=== PATIENT | female | born 1940 | race Caucasian/White ===

== ENCOUNTER 2022-03-01 09:28 | Day surgery (SDC) | payer MEDICARE, SELFPAY ==
--- NOTE | 2022-03-01 10:18 | W.ANESPRE ---
General Info Date of Service Date Performed: 03/01/22 Height: 5 ft 3 in Weight: 61 kg Body Mass Index (BMI): 23.8 Surgical Procedure: Operation Date: 03/01/22 12:40 Proposed Procedure Side Surgeon p Cataract Extraction with IOL Implant Right Wilton Mendez MD Meds Allergies and Home Medications Allergies Allergy/AdvReac Type Severity Reaction Status Date / Time azithromycin Allergy Intermediate Hives Unverified 03/01/22 10:20 codeine Allergy Intermediate Hives Unverified 03/01/22 10:20 amoxicillin Allergy Unverified 03/01/22 10:20 Home Medication Medication Instructions Recorded acetaminophen 325 mg tablet 325 mg PO DIRECTED 02/23/22 carbidopa 25 mg-levodopa 100 mg 1 tab PO QID 02/23/22 tablet cholecalciferol (vitamin D3) 10 400 unit PO DAILY 02/23/22 mcg (400 unit) capsule (Vitamin D3) donepezil 5 mg tablet 5 mg PO HS 02/23/22 glucosamine sulfate 500 mg tablet 1,000 mg PO DAILY 02/23/22 (Glucosamine) hydrochlorothiazide 12.5 mg tablet 12.5 mg PO DAILY 02/23/22 hydrocortisone 2.5 % topical cream 1 applic topical DIRECTED 02/23/22 multivitamin 1 tab PO DAILY 02/23/22 simvastatin 20 mg tablet 20 mg PO HS 02/23/22 zinc oxide 1 applic topical DIRECTED 02/23/22 Current Visit Medications: Current Medications Generic Name Dose Route Start Last Admin Trade Name Freq PRN Reason Stop Dose Admin Acetaminophen 1,000 mg 03/01/22 06:00 Acetaminophen 500 Mg Tab PO Q4H PRN PRN Miscellaneous Medication 0 ml 03/01/22 06:00 Prednisolone 1%, Moxifloxacin 0.5%, Nepafenac 0.1% 5ml Btl OD DIRECTED [place] Miscellaneous Medication 0 ml 03/01/22 06:00 Tropicam./Phenyleph. (1/2.5%) 5 Ml Btl OD DIRECTED [place] Tetracaine HCl 0 ml 03/01/22 06:00 Tetracaine 0.5% 4 Ml Btl OD DIRECTED [place] PFSH Active Problems Active Problems: Problem Status Onset Code Nuclear sclerotic cataract of right eye H25.11 Cortical cataract of right eye H26.9 Medical History Medical History Dementia due to Parkinson's disease, without behavioral disturbance, psychotic disturbance, mood disturbance, or anxiety Essential hypertension Falls frequently Gait abnormality GERD with esophagitis History of hoarseness History of melanoma Hx of breast cancer Lichen sclerosus Memory loss Mixed hyperlipidemia Paresthesia Parkinson's disease with neurogenic orthostatic hypotension Polyarthralgia Pseudobulbar affect Psoriasis Right hip pain Seasonal allergic rhinitis 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 Urinary incontinence Visual hallucination Vitamin D deficiency Surgical History Surgical History H/O basal cell carcinoma excision History of right hip replacement History of total abdominal hysterectomy Hx of appendectomy Hx of breast biopsy Hx of colonoscopy Hx of lumpectomy Hx of melanoma excision Tobacco Smoking/Tobacco Use Status: Never Alcohol Alcohol Intake: never Substance Use Substance use: Never Substance use type: does not use Vital Signs and Lab Results Lab Results Blood Type / Crossmatch: No Data to Display Complete Blood Count: No Data to Display Complete Metabolic Panel: No Data to Display Liver Function Panel: No Data to Display Coagulation Panel: No Data to Display Cardiac Panel: No Data to Display Arterial Blood Gas: No Data to Display Venous Blood Gas: No Data to Display Pancreas Panel: No Data to Display Thyroid Panel: No Data to Display Infectious Disease: No Data to Display Blood Cultures: No Data to Display Toxicology Panel: No Data to Display Anesthesia Assessment and Plan Anesthesia History Personal History: No History of Anesthesia Complications Family History: No Family History of Anesthesia Complications Exercise Tolerance Exercise Tolerance: Metabolic Equivalents<4 Pertinent Negatives Pertinent Negatives: No Major Cardiovascular Symptoms or Complaints, No Major Pulmonary Symptoms or Complaints and No History of CVA/TIA Cardiac & Pulmonary Exam Cardiac Exam: Normal S1/S2 Heart Sounds Pulmonary Exam: Clear Bilateral Breath Sounds Implantable Cardiac Device Does patient have a Pacemaker or an ICD?: No Airway Exam Known Difficult Airway: No Mallampati Class: 3 Mouth Opening: Normal (> 3cm) Thyromental Distance: Greater than 3 cm Neck Range of Motion: Limited ROM Neck Circumference: Normal Teeth Condition: Normal Dentition ASA Classification ASA Score: ASA 3 Emergency Case?: No NPO Status NPO Status: NPO Clears >2 hours, Solids >8 hours Anesthesia Plan Resuscitation Status: Full Code Anesthesia Technique: MAC Anesthesia Airway Planned: Natural Airway Monitors Used: Standard Monitors Preoperative Comments:: 81 yo female for cataract removal. Sig PMHx: parkinsons (orthostatic hypotension, dementia), GERD, HTN, never smoker. Significant limitations due to her parkinsons. Discussed plan with her, she feels that she will be ok with no MKO mac, but we discussed that an IV can be placed intraoperatively and a small amount of medication given if she feels that it is needed. She and her spouse are in agrement.
[2022-03-01] MEDS: Tropicam./Phenyleph. (1/2.5%) 5 ML BTL OD ×3 (10:24→10:41)
[2022-03-01 10:25] VITALS: BP 143/82; PULSE 63; RESP 16; TEMP 36.1; O2SAT 99
[2022-03-01 10:39] VITALS: BMI 23.8
[2022-03-01] MEDS: Povidone-Iodine Ophth 30 ML BTL (11:16)
[2022-03-01] MEDS: Tetracaine 0.5% 4 ML BTL OD (11:18)
[2022-03-01] MEDS: Balanced Salt Soln.-PLUS 500 ML BAG (11:18)
[2022-03-01] MEDS: Duovisc Viscoelastic System EACH 1 EACH (11:19)
[2022-03-01] MEDS: Lidocaine 2% Jelly 6 ML SYR (11:19)
[2022-03-01 11:39] VITALS: BP 177/85; PULSE 61; RESP 16; TEMP 35.9; O2SAT 100
--- NOTE | 2022-03-01 11:51 | W.PM.DSUDISC ---
Date of service: 03/01/22 Time of Service: 11:51 Discharge Plan Disposition Patient Disposition: HOME Condition: Good Discharge Details Attending Provider: Wilton Mendez Primary Care Provider: Catrachito Sparrow Home Meds and New Rx's Prescriptions: No Action multivitamin Tablet 1 tab PO DAILY acetaminophen 325 mg Tablet 325 mg PO DIRECTED donepezil 5 mg Tablet 5 mg PO HS glucosamine sulfate [Glucosamine] 500 mg Tablet 1,000 mg PO DAILY simvastatin 20 mg Tablet 20 mg PO HS hydrocortisone 2.5 % Cream 1 applic TOPICAL DIRECTED carbidopa-levodopa 25-100 mg Tablet 1 tab PO QID zinc oxide Cream 1 applic TOPICAL DIRECTED cholecalciferol (vitamin D3) [Vitamin D3] 10 mcg (400 unit) Capsule 400 unit PO DAILY hydrochlorothiazide 12.5 mg Tablet 12.5 mg PO DAILY Discharge Instructions Stand Alone Forms: Post-op Topical Cataract, Yovani Ann (DSU) Discharge Orders Discharge Orders: Discharge Order (Routine); Ordered 03/01/22 Ordered By: Wilton Mendez DS: Diagnosis Discharge Diagnosis (1) Nuclear sclerotic cataract of right eye: Status: Resolved (2) Cortical cataract of right eye: Status: Resolved
--- NOTE | 2022-03-01 11:52 | ROE_ITS ---
Date of service: 03/01/22 Time of Service: 11:52 Operative Note Operative Note DATE OF PROCEDURE: 03/01/22 PRE-OP DIAGNOSIS: Nuclear/cortical cataract, right eye POST-OP DIAGNOSIS: same PROCEDURE: Cataract extraction using phacoemulsification with intraocular lens implant, right eye SURGEON: Wilton Mendez ANESTHESIA TYPE: Local By Surgeon and MAC Refer to Anesthesia Record ESTIMATED BLOOD LOSS: 0 PATHOLOGY: none sent COMPLICATIONS: None Patient was transported to: same day Patient's condition: stable Implants: Chase & Chase/SIMON Tecnis [id number] Indications: Progressive visual loss due to cataract, right eye Procedure Description: CATARACT SURGERY OPERATIVE REPORT PREOPERATIVE DIAGNOSIS: 1. Nuclear/cortical cataract, right eye POSTOPERATIVE DIAGNOSIS: Same OPERATION: 1. Cataract extraction using phacoemulsification with posterior chamber intraocular lens implant, right eye. IOL: IOL Qm Consultant/Model: Chase & Chase / SIMON Tecnis [id number] IOL Power: + 22.5 diopters IOL Serial Number: [id number] Optic Diameter: 6.0mm Haptic/Overall Diameter: 13.0mm PHACO INFO: Constantine eTippingurion Vision System with OZil and Active Fluidics Cumulative Dispersed Energy (CDE): 5.65 seconds SURGEON: Wilton Mendez MD, ATILIO ANESTHESIA: Monitored Anesthesia Care (MAC), with local sub-tenon's anesthetic infiltration COMPLICATIONS: None SPECIMENS: None INDICATIONS FOR PROCEDURE: The patient is an 81-year-old lady with history of diminished visual acuity in both eyes secondary to the development of bilateral nuclear/cortical cataract. She is significantly symptomatic that she desires cataract surgery and attempt to improve and maximize her vision. The option of cataract surgery was offered to the patient and she wished to proceed. PROCEDURE: The correct surgical eye was identified and marked as the right eye and the pupil was dilated in the preoperative area using mydriatics and cycloplegics. The dilated pupil size was 8.0 mm. The patient elected to proceed without oral sedation. The patient was brought to the operating room where cardiopulmonary monitoring was instituted and surgical time-out was performed, confirming the correct operative eye and IOL power. Positioning was challenging due to patient's history of back issues. Topical anesthesia was administered and ophthalmic povidone-iodine 5% was instilled into the conjunctival fornices. Lidocaine gel was applied to the cornea and the hermes-ocular area was prepped with Betadine 10% solution and draped in the usual sterile fashion for intraocular surgery, including an aperture drape. A Tegaderm transparent film dressing was cut in half and used to cover the lashes and lid margins. Care was taken to sequester the lashes and lid margins under the Tegaderm dressing. A lid speculum was placed between the lids of the operative eye and the Constantine LuxOR Revalia operating microscope was maneuvered into position. Katie scissors were then used to make a conjunctival buttonhole approximately 6mm posterior to the limbus in the inferonasal quadrant. Blunt dissection was carried out to expose bare sclera, and a blunt-tipped sub-tenon?s anesthesia cannula was introduced and passed posteriorly along the globe where non- preserved plain lidocaine was injected into posterior sub-Tenon?s space. A sideport knife was used to make a paracentesis port inferotemporally. Intraocular phenylephrine/lidocaine was injected into the anterior chamber. The anterior chamber was filled with viscoelastic. A keratome knife was used to construct a 2-plane near-clear corneal tunnel extending 2.0mm into clear cornea superiortemporally. A flap was raised on the anterior capsule and capsulorhexis forceps were used to complete a continuous curvilinear capsulorhexis of 5.0 mm. The capsule is noted to be quite thin with some zonular laxity. Balanced salt solution was then used to perform cortical cleaving hydrodissection and nuclear hydrodelineation until the lens could be freely rotated within the capsular bag. The lens nucleus was then disassembled and removed within the capsular bag and iris plane using phacoemulsification. Residual cortical material was removed using the I/A handpiece. The posterior capsule was carefully polished to remove as much residual lens epithelial cells as safely possible. The capsular bag was then inflated and the anterior chamber deepened with viscoelastic. The lens implant described above was inserted into the capsular bag using the SIMON [place] Injector. A Kuglen hook was used to dial the IOL into position. Residual viscoelastic was then removed first from posterior to the IOL, then from the anterior chamber using the I/A handpiece. The lens implant was noted to center nicely within the capsular bag. The incisions were stromally hydrated, and the anterior chamber was reformed using BSS. Then 0.5cc of moxifloxacin 1.0mg/ml were injected into the capsular bag and anterior chamber. The incisions were checked with a Weck spear and found to be secure. Several drops of ophthalmic povidone-iodine 5% were then applied to the eye followed by two drops of Imprimis combination prednisolone/moxifloxacin/nepafenac solution. The drapes were removed and a clear plastic protective eye shield was placed over the eye. The patient was then returned to Same Day Surgery in stable condition.
[2022-03-01] MEDS: Acetaminophen 500 MG TAB 1000 MG PO (11:55)
--- NOTE | 2022-03-01 12:03 | W.ANESPOSTOP ---
Postoperative Evaluation Date, Time and Location Date Performed: 03/01/22 Time Performed: 12:03 Patient Location: Day Surgery Unit Vital Signs Most Recent Imported Vital Signs: Most Recent Vital Signs Temp Pulse Resp BP Pulse Ox 35.9 C L 61 16 177/85 H 100 03/01/22 11:39 03/01/22 11:39 03/01/22 11:39 03/01/22 11:39 03/01/22 11:39 Pain Score Most Recent Pain Score: Most Recent Pain Score Pain Level 0 03/01/22 11:39 Assessment Mental Status: Awake (Alert & Oriented to Patient Baseline) Airway and Respiratory Function: Patent airway with normal (patient baseline) respiratory exam Cardiovascular Function: Hemodynamically Stable Hydration Status: Adequately Hydrated Nausea & Vomiting: No Nausea or Vomiting Pain: Pt. Denies Any Pain Peripheral Nerve Block: Other (Local by Dr. Mendez) Postoperative Comments:: Patient seen earlier and doing well. Cleared for discharge
[2022-03-01 12:07] VITALS: BP 128/76; PULSE 68; RESP 16; TEMP 36.6; O2SAT 97
== END 2022-03-01 12:23 | disposition home or self-care (01) ==
LOC: SUR 09:30
PROVIDERS: PCP Family Medicine; Visit Provider Ophthalmology
PROC: (CPT 66984; principal; 2022-03-01 12:30)
DX: H25.11 Age-related nuclear cataract, right eye (principal); G20 Parkinson's disease; I10 Essential (primary) hypertension
CPT/HCPCS: 66984; V2632

== ENCOUNTER 2022-03-15 07:03 | Day surgery (SDC) | payer MEDICARE, SELFPAY ==
[2022-03-15 07:30] VITALS: BP 99/58; PULSE 75; RESP 16; TEMP 36; O2SAT 98
[2022-03-15 07:48] VITALS: BP 99/58; PULSE 75; RESP 16; TEMP 36; O2SAT 98
[2022-03-15] MEDS: Tropicam./Phenyleph. (1/2.5%) 5 ML BTL OS ×3 (07:51→07:58)
--- NOTE | 2022-03-15 07:58 | W.ANESPRE ---
General Info Date of Service Date Performed: 03/15/22 Height: 5 ft 4 in Weight: 56.245 kg Body Mass Index (BMI): 21.2 Surgical Procedure: Operation Date: 03/15/22 09:40 Proposed Procedure Side Surgeon p Cataract Extraction with IOL Implant Left Wilton Mendez MD Meds Allergies and Home Medications Allergies Allergy/AdvReac Type Severity Reaction Status Date / Time azithromycin Allergy Intermediate Hives Unverified 03/15/22 07:38 codeine Allergy Intermediate Hives Unverified 03/15/22 07:38 amoxicillin Allergy Unverified 03/15/22 07:38 Home Medication Medication Instructions Recorded acetaminophen 325 mg tablet 325 mg PO DIRECTED 02/23/22 carbidopa 25 mg-levodopa 100 mg 1 tab PO QID 02/23/22 tablet cholecalciferol (vitamin D3) 10 400 unit PO DAILY 02/23/22 mcg (400 unit) capsule (Vitamin D3) donepezil 5 mg tablet 5 mg PO HS 02/23/22 glucosamine sulfate 500 mg tablet 1,000 mg PO DAILY 02/23/22 (Glucosamine) hydrochlorothiazide 12.5 mg tablet 12.5 mg PO DAILY 02/23/22 hydrocortisone 2.5 % topical cream 1 applic topical DIRECTED 02/23/22 multivitamin 1 tab PO DAILY 02/23/22 simvastatin 20 mg tablet 20 mg PO HS 02/23/22 zinc oxide 1 applic topical DIRECTED 02/23/22 Current Visit Medications: Current Medications Generic Name Dose Route Start Last Admin Trade Name Freq PRN Reason Stop Dose Admin Acetaminophen 1,000 mg 03/15/22 06:00 Acetaminophen 500 Mg Tab PO Q4H PRN PRN Miscellaneous Medication 0 ml 03/15/22 06:00 Prednisolone 1%, Moxifloxacin 0.5%, Nepafenac 0.1% 5ml Btl OS DIRECTED [place] Miscellaneous Medication 0 ml 03/15/22 06:00 03/15/22 07:54 Tropicam./Phenyleph. (1/2.5%) 5 Ml Btl OS 1 drp DIRECTED [place] Administration Tetracaine HCl 0 ml 03/15/22 06:00 Tetracaine 0.5% 4 Ml Btl OS DIRECTED [place] PFSH Active Problems Active Problems: Problem Status Onset Code Cortical cataract of right eye H26.9 Nuclear sclerotic cataract of right eye H25.11 Nuclear sclerotic cataract of left eye H25.12 Cortical cataract of left eye H26.9 Medical History Medical History Dementia due to Parkinson's disease, without behavioral disturbance, psychotic disturbance, mood disturbance, or anxiety Essential hypertension Falls frequently Gait abnormality GERD with esophagitis History of hoarseness History of melanoma Hx of breast cancer Lichen sclerosus Memory loss Mixed hyperlipidemia Paresthesia Parkinson's disease with neurogenic orthostatic hypotension Polyarthralgia Pseudobulbar affect Psoriasis Right hip pain Seasonal allergic rhinitis 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 Urinary incontinence Visual hallucination Vitamin D deficiency Medical History Comments:: Frequent falls; neck/back issues Surgical History Surgical History H/O basal cell carcinoma excision History of cataract surgery History of right hip replacement History of total abdominal hysterectomy Hx of appendectomy Hx of breast biopsy Hx of colonoscopy Hx of lumpectomy Hx of melanoma excision Tobacco Smoking/Tobacco Use Status: Never Alcohol Alcohol Intake: never Substance Use Substance use: Never Substance use type: does not use Vital Signs and Lab Results Vital Signs Most Recent Vital Signs in EMR: Most Recent Vital Signs Temp Pulse Resp BP Pulse Ox 36 C L 75 16 99/58 L 98 03/15/22 07:48 03/15/22 07:48 03/15/22 07:48 03/15/22 07:48 03/15/22 07:48 Lab Results Blood Type / Crossmatch: No Data to Display Complete Blood Count: No Data to Display Complete Metabolic Panel: No Data to Display Liver Function Panel: No Data to Display Coagulation Panel: No Data to Display Cardiac Panel: No Data to Display Arterial Blood Gas: No Data to Display Venous Blood Gas: No Data to Display Pancreas Panel: No Data to Display Thyroid Panel: No Data to Display Infectious Disease: No Data to Display Blood Cultures: No Data to Display Toxicology Panel: No Data to Display Anesthesia Assessment and Plan Anesthesia History Personal History: No History of Anesthesia Complications Family History: No Family History of Anesthesia Complications Exercise Tolerance Exercise Tolerance: Metabolic Equivalents<4 Pertinent Negatives Pertinent Negatives: No Symptoms of GERD Cardiac & Pulmonary Exam Cardiac Exam: Normal S1/S2 Heart Sounds Pulmonary Exam: Clear Bilateral Breath Sounds Implantable Cardiac Device Does patient have a Pacemaker or an ICD?: No Airway Exam Known Difficult Airway: No Mallampati Class: 3 Mouth Opening: Normal (> 3cm) Thyromental Distance: Greater than 3 cm Neck Range of Motion: Limited ROM Neck Circumference: Normal Teeth Condition: Normal Dentition ASA Classification ASA Score: ASA 3 Emergency Case?: No NPO Status NPO Status: NPO Clears >2 hours, Solids >8 hours Anesthesia Plan Resuscitation Status: Full Code Anesthesia Technique: MAC Anesthesia Airway Planned: Natural Airway Monitors Used: Standard Monitors Preoperative Comments:: No sedation as before. Did well
[2022-03-15 08:00] VITALS: BMI 21.2
[2022-03-15] MEDS: Tetracaine 0.5% 4 ML BTL OS (08:50)
[2022-03-15] MEDS: Povidone-Iodine Ophth 30 ML BTL (08:54)
[2022-03-15] MEDS: Lidocaine 2% Jelly 6 ML SYR (08:55)
[2022-03-15] MEDS: Lidocaine 1% Pres-Free 5 ML VIAL (09:01)
[2022-03-15] MEDS: Duovisc Viscoelastic System EACH 1 EACH (09:04)
[2022-03-15] MEDS: Balanced Salt Soln.-PLUS 500 ML BAG (09:04)
[2022-03-15 09:26] VITALS: BP 182/107; PULSE 67; RESP 16; TEMP 36.1; O2SAT 99
--- NOTE | 2022-03-15 09:26 | W.PM.DSUDISC ---
Date of service: 03/15/22 Time of Service: 09:26 Discharge Plan Disposition Patient Disposition: HOME Condition: Good Discharge Details Attending Provider: Wilton Mendez Primary Care Provider: Catrachito Sparrow Home Meds and New Rx's Prescriptions: No Action multivitamin Tablet 1 tab PO DAILY acetaminophen 325 mg Tablet 325 mg PO DIRECTED donepezil 5 mg Tablet 5 mg PO HS glucosamine sulfate [Glucosamine] 500 mg Tablet 1,000 mg PO DAILY simvastatin 20 mg Tablet 20 mg PO HS hydrocortisone 2.5 % Cream 1 applic TOPICAL DIRECTED carbidopa-levodopa 25-100 mg Tablet 1 tab PO QID zinc oxide Cream 1 applic TOPICAL DIRECTED cholecalciferol (vitamin D3) [Vitamin D3] 10 mcg (400 unit) Capsule 400 unit PO DAILY hydrochlorothiazide 12.5 mg Tablet 12.5 mg PO DAILY Discharge Instructions Stand Alone Forms: Post-op Topical Cataract, Yovani Ann (DSU) Discharge Orders Discharge Orders: Discharge Order (Routine); Ordered 03/15/22 Ordered By: Wilton Mendez DS: Diagnosis Discharge Diagnosis (1) Nuclear sclerotic cataract of left eye: Status: Resolved (2) Cortical cataract of left eye: Status: Resolved
--- NOTE | 2022-03-15 09:27 | ROE_ITS ---
Date of service: 03/15/22 Time of Service: 09:27 Operative Note Operative Note DATE OF PROCEDURE: 03/15/22 PRE-OP DIAGNOSIS: Nuclear/cortical cataract, left eye POST-OP DIAGNOSIS: same PROCEDURE: Cataract extraction using phacoemulsification with intraocular lens implant, left eye SURGEON: Wilton Mendez ANESTHESIA TYPE: Local By Surgeon and MAC Refer to Anesthesia Record PATHOLOGY: none sent COMPLICATIONS: None Patient was transported to: same day Patient's condition: stable Implants: Chase and Chase / [employer] Tecnis [id number] Indications: Progressive decreased vision due to cataract, left eye Procedure Description: CATARACT SURGERY OPERATIVE REPORT PREOPERATIVE DIAGNOSIS: 1. Nuclear/cortical cataract, left eye POSTOPERATIVE DIAGNOSIS: Same OPERATION: 1. Cataract extraction using phacoemulsification with posterior chamber intraocular lens implant, left eye. IOL: IOL Puttying And Calking Supervisor/Model: Chase & Chase / SIMON Tecnis [id number] IOL Power: + 23.0 diopters IOL Serial Number: [id number] Optic Diameter: 6.0 mm Haptic/Overall Diameter: 13.0 mm PHACO INFO: ConstantineNetsocketurion Vision System with OZil and Active Fluidics Cumulative Dispersed Energy (CDE): 9.51 seconds SURGEON: Wilton Mendez MD, ATILIO ANESTHESIA: Monitored A [facility] (MAC), with local sub-tenon's anesthetic infiltration COMPLICATIONS: None SPECIMENS: None INDICATIONS FOR PROCEDURE: The patient is an 81-year-old lady with history of diminished visual acuity in both eyes secondary to development of bilateral nuclear/cortical cataract. She is significantly symptomatic that she desires cataract surgery and attempt to improve and maximize her vision. She has already undergone cataract surgery in the right eye and is doing well postoperatively. She now presents for cataract surgery in the left eye. PROCEDURE: The correct surgical eye was identified and marked as the left eye and the pupil was dilated in the preoperative area using mydriatics and cycloplegics. The dilated pupil size was 7.0 mm. The patient elected to proceed without oral sedation. The patient was brought to the operating room where cardiopulmonary monitoring was instituted and surgical time-out was performed, confirming the correct operative eye and IOL power. Positioning was challenging due to severe kyphosis. Topical anesthesia was administered and ophthalmic povidone-iodine 5% was instilled into the conjunctival fornices. Lidocaine gel was applied to the cornea and the hermes-ocular area was prepped with Betadine 10% solution and draped in the usual sterile fashion for intraocular surgery, including an aperture drape. A Tegaderm transparent film dressing was cut in half and used to cover the lashes and lid margins. Care was taken to sequester the lashes and lid margins under the Tegaderm dressing. Draping was challenging due to severe blepharospasm. A lid speculum was placed between the lids of the operative eye and the Constantine LuxOR Revalia operating microscope was maneuvered into position. Katie scissors were then used to make a conjunctival buttonhole approximately 6mm posterior to the limbus in the inferonasal quadrant. Blunt dissection was carried out to expose bare sclera, and a blunt-tipped sub-tenon?s anesthesia cannula was introduced and passed posteriorly along the globe where non- preserved plain lidocaine was injected into posterior sub-Tenon?s space. A sideport knife was used to make a paracentesis port superiorly/superiortemporally. Intraocular phenylephrine/lidocaine was injected int the anterior chamber.. The anterior chamber was filled with viscoelastic. A keratome knife was used to construct a 2-plane near-clear corneal tunnel extending 2.0mm into clear cornea temporally. A flap was raised on the anterior capsule and capsulorhexis forceps were used to complete a continuous curvilinear capsulorhexis of 5.0 mm. Moderate zonular laxity was noted with a very thin capsule. Balanced salt solution was then used to perform cortical cleaving hydrodissec tion and nuclear hydrodelineation until the lens could be freely rotated within the capsular bag. The lens nucleus was then disassembled and removed within the capsular bag and iris plane using phacoemulsification. Residual cortical material was removed using the 45-degree angled silicone I/A tip with 0.3mm port. The posterior capsule was carefully polished to remove as much residual lens epithelial cells as safely possible. The capsular bag was then inflated and the anterior chamber deepened with viscoelastic. The lens implant described above was inserted into the capsular bag using the SIMON [place] Injector. A Kuglen hook was used to dial the IOL into position. Residual viscoelastic was then removed first from posterior to the IOL, then from the anterior chamber using the I/A handpiece. The lens implant was noted to center nicely within the capsular bag. The incisions were stromally hydrated, and the anterior chamber was reformed using BSS. Then 0.5cc of moxifloxacin 1.0mg/ml were injected into the capsular bag and anterior chamber. The incisions were checked with a Weck spear and found to be secure. Several drops of ophthalmic povidone-iodine 5% were then applied to the eye followed by two drops of Imprimis combination prednisolone/moxifloxacin/nepafenac solution. The drapes were removed and a clear plastic protective eye shield was placed over the eye. The patient was then returned to Same Day Surgery in stable condition.
--- NOTE | 2022-03-15 09:43 | W.ANESPOSTOP ---
Postoperative Evaluation Date, Time and Location Date Performed: 03/15/22 Time Performed: 09:30 Patient Location: Day Surgery Unit Vital Signs Most Recent Imported Vital Signs: Most Recent Vital Signs Temp Pulse Resp BP Pulse Ox 36 C L 75 16 99/58 L 98 03/15/22 07:48 03/15/22 07:48 03/15/22 07:48 03/15/22 07:48 03/15/22 07:48 Most Recent Manually Entered Vital Signs: Adult Blood Pressure: 182/107 Heart Rate: 67 Respirations: 16 Oxygen Saturation (%): 99 Temperature (C): 36.1 C Pain Score (0-10 Scale): 0 Assessment Mental Status: Awake (Alert & Oriented to Patient Baseline) Airway and Respiratory Function: Patent airway with normal (patient baseline) respiratory exam Cardiovascular Function: Hemodynamically Stable Hydration Status: Adequately Hydrated Nausea & Vomiting: No Nausea or Vomiting Pain: Pt. Denies Any Pain Peripheral Nerve Block: Patient did not receive a nerve block
[2022-03-15 09:46] VITALS: BP 125/61; BP 182/107; PULSE 67; RESP 16; TEMPC 36.1; O2SAT 99
== END 2022-03-15 09:55 | disposition home or self-care (01) ==
LOC: SUR 07:03
PROVIDERS: PCP Family Medicine; Visit Provider Ophthalmology
PROC: (CPT 66984; principal; 2022-03-15 09:30)
DX: H25.12 Age-related nuclear cataract, left eye (principal)
CPT/HCPCS: 66984; V2632